=== PATIENT | male | born 1965 | race Caucasian/White ===

== ENCOUNTER 2017-09-08 18:17 | Emergency (ER) | payer OTHER ==
[2017-09-08] MEDS ORDERED: AZITHROMYCIN 250 MG TAB PO ONE (18:42)
--- NOTE | 2017-09-08 18:45 | EDPHY ---
H & P Stated Complaint: cold symptoms for 1 week, fevers, left eye discharge Time Seen by Provider: 09/08/17 18:27 HPI/ROS: CHIEF COMPLAINT: Sinus congestion, sore throat HISTORY OF PRESENT ILLNESS: Patient is a 52-year-old man who recently traveled to [place] and hospital for special care. He is complaining of a sore throat, runny nose and now irritation in his left eye with clear discharge. No fevers or chills. No shortness of breath. No abdominal or GI symptoms. He states that he has a family reunion tomorrow. No headache or neck stiffness. No altered mental status. He is requesting antibiotics. REVIEW OF SYSTEMS: Constitutional: denies: chills, fever, recent illness, recent injury EENTM: See HPI Respiratory: See HPI Cardiac: denies: chest pain, irregular heart rate, lightheadedness, palpitations Gastrointestinal/Abdominal: denies: abdominal pain, diarrhea, nausea, vomiting, blood streaked stools Genitourinary: denies: dysuria, frequency, hematuria, pain Musculoskeletal: denies: joint pain, muscle pain Skin: denies: lesions, rash, jaundice, bruising Neurological: denies: headache, numbness, paresthesia, tingling, dizziness, weakness Hematologic/Lymphatic: denies: blood clots, easy bleeding, easy bruising Immunologic/allergic: denies: HIV/AIDS, transplant EXAM: GENERAL: Well-appearing, well-nourished and in no acute distress. HEAD: Atraumatic, normocephalic. EYES: Pupils equal round and reactive to light, extraocular movements intact, sclera anicteric, conjunctiva slightly injected on the left, clear discharge. ENT: TMs normal, nares congested, oropharynx erythematous without exudates. Moist mucous membranes. NECK: Normal range of motion, supple without lymphadenopathy or JVD. LUNGS: Breath sounds clear to auscultation bilaterally and equal. No wheezes rales or rhonchi. HEART: Regular rate and rhythm without murmurs, rubs or gallops. ABDOMEN: Soft, nontender, normoactive bowel sounds. No guarding, no rebound. No masses appreciated. BACK: No CVA tenderness, no spinal tenderness, step-offs or deformities EXTREMITIES: Normal range of motion, no pitting or edema. No clubbing or cyanosis. NEUROLOGICAL: Cranial nerves II through XII grossly intact. Normal speech, normal gait. 5/5 strength, normal movement in all extremities, normal sensation PSYCH: Normal mood, normal affect. SKIN: Warm, dry, normal turgor, no visible rashes or lesions. Source: Patient Exam Limitations: No limitations - Medical/Surgical History Hx Asthma: No Hx Chronic Respiratory Disease: No Hx Diabetes: No Hx Cardiac Disease: No Hx Renal Disease: No Hx Cirrhosis: No Hx Alcoholism: No Hx HIV/AIDS: No Hx Splenectomy or Spleen Trauma: No - Family History Significant Family History: No pertinent family hx - Social History Smoking Status: Never smoked Alcohol Use: None Constitutional: Initial Vital Signs Temperature (C) 37.2 C 09/08/17 18:20 Heart Rate 102 H 09/08/17 18:20 Respiratory Rate 18 09/08/17 18:20 Blood Pressure 134/82 H 09/08/17 18:20 O2 Sat (%) 92 09/08/17 18:20 O2 Delivery Mode Room Air Allergies/Adverse Reactions: unknown suppository Allergy (Uncoded 09/08/17 18:20) Home Medications: Medication Instructions Recorded Miscellaneous Medical Supply [NO 1 ea [facility] [place] 07/13/12 HOME MEDS] Azithromycin 250 mg PO DAILY #4 tablet 09/08/17 Medical Decision Making ED Course/Re-evaluation: The patient appears to have an upper respiratory tract infection and pharyngitis. I will start him on azithromycin. His eye irritation the may be from sinus congestion. Will have to monitor. Patient would prefer to start antibiotics now. Encouraged him to return if his symptoms worsen. He declines further testing at this time. We discussed contact precautions at his family libertarian. Differential Diagnosis: Partial list of the Differential diagnosis considered include but were not limited to; upper respiratory tract infection, pharyngitis, conjunctivitis, allergies and although unlikely based on the history and physical exam, I also considered sepsis, meningitis, pneumonia. I discussed these differential diagnoses and the plan with the patient as well as the usual and expected course. The patient understands that the diagnosis is provisional and that in medicine we are not always correct and that further workup is often warranted. Usual and customary warnings were given. All of the patient's questions were answered. The patient was instructed to return to the emergency department should the symptoms at all worsen or return, otherwise to followup with the physician as we discussed. - Data Points Medications Given: Discontinued Medications Azithromycin (Zithromax) 500 mg PO EDNOW ONE PRN Reason: Protocol Stop: 09/08/17 18:43 Last Admin: 09/08/17 18:48 Dose: 500 mg Departure - Departure Disposition: Home, Routine, Self-Care Clinical Impression: Upper respiratory tract infection Qualifiers: URI type: unspecified URI Qualified Code(s): J06.9 - Acute upper respiratory infection, unspecified Pharyngitis Qualifiers: Pharyngitis/tonsillitis etiology: unspecified etiology Qualified Code(s): J02.9 - Acute pharyngitis, unspecified Condition: Fair Instructions: Pharyngitis (ED), Upper Respiratory Infection (ED) Referrals: NONE *PRIMARY CARE P,. [Primary Care Provider] - As per Instructions Prescriptions: Azithromycin 250 mg PO DAILY #4 tablet
[2017-09-08 18:53] VITALS: BP 135/78
== END 2017-09-08 18:52 | disposition home or self-care (01) ==
DX: J06.9 Acute upper respiratory infection, unspecified (principal)